=== PATIENT | female | born 1975 | race Caucasian/White ===

== ENCOUNTER 2022-11-06 22:08 | Emergency (ER) | payer OTHER ==
[2022-11-06 22:21] VITALS: RESP 16; TEMP 97.8
[2022-11-06 22:55] LABS: Basophils # (A) 0.1 k/uL (0-0.2); Basophils % (A) 1 %; Eosinophils # (A) 0.3 k/uL (0-0.7); Eosinophils % (A) 3 %; HGB 14.3 gm/dL (11.4-16.0); Lymphocytes # (A) 2.8 k/uL (1.0-4.8); Lymphocytes % (A) 33 %; MCH 31.1 pg (25.0-35.0); MCHC 33.3 g/dL (31.0-37.0); MCV 93.4 fL (80.0-100.0); Monocytes # (A) 0.5 k/uL (0-1.0); Monocytes % (A) 6 %; Neutrophils # (A) 4.7 k/uL (1.3-7.7); Neutrophils % (A) 56 %; Platelet Count 237 k/uL (150-450); RBC 4.61 m/uL (3.80-5.40); RDW 13.1 % (11.5-15.5); WBC 8.4 k/uL (3.8-10.6)
--- NOTE | 2022-11-06 23:01 | ED ---
General Adult HPI - General Source: patient, family, RN notes reviewed Mode of arrival: EMS Limitations: no limitations <Simi Vazquez - Last Filed: 11/07/22 00:35> <Dago Agosto - Last Filed: 11/07/22 03:34> - General Chief complaint: Anxiety Stated complaint: Altered Mental Time Seen by Provider: 11/06/22 22:26 - History of Present Illness Initial comments: 47-year-old female presents emergency department via EMS for anxiety. Patient has been under a lot of stress recently and lost her father today who was on hospice. Cousin and uncle are at bedside. Family states that she went to the hospice house when she suddenly went down to the floor. Family states she did not hit her head. Her cousin in the room with her states that she "would not respond" to them but would open her eyes. He states that the patient was moving her mouth but she would not talk. Family states this lasted about 10 minutes until EMS arrived. She states that she does not remember the episode. Past medical history includes anxiety. (Simi Vazquez) - Related Data Allergies Allergy/AdvReac Type Severity Reaction Status Date / Time Sulfa (Sulfonamide Allergy Unknown Verified 11/06/22 23:47 Antibiotics) Review of Systems ROS Other: All systems not noted in ROS Statement are negative. <Simi Vazquez - Last Filed: 11/07/22 00:35> ROS Other: All systems not noted in ROS Statement are negative. <Dago Agosto - Last Filed: 11/07/22 03:34> ROS Statement: Those systems with pertinent positive or pertinent negative responses have been documented in the HPI. Past Medical History History of Any Multi-Drug Resistant Organisms: None Reported Past Psychological History: No Psychological Hx Reported Smoking Status: Never smoker Past Alcohol Use History: None Reported Past Drug Use History: None Reported <Simi Vazquez - Last Filed: 11/07/22 00:35> General Exam Limitations: no limitations General appearance: alert, in no apparent distress Head exam: Present: atraumatic, normocephalic, normal inspection Eye exam: Present: normal appearance, PERRL, EOMI. Absent: scleral icterus, conjunctival injection, periorbital swelling ENT exam: Present: normal exam, mucous membranes dry Neck exam: Present: normal inspection, full ROM. Absent: tenderness, meningismus, lymphadenopathy Respiratory exam: Present: normal lung sounds bilaterally. Absent: respiratory distress, wheezes, rales, rhonchi, stridor Cardiovascular Exam: Present: regular rate, normal rhythm, normal heart sounds. Absent: systolic murmur, diastolic murmur, rubs, gallop, clicks GI/Abdominal exam: Present: soft, normal bowel sounds. Absent: distended, t enderness, guarding, rebound, rigid Extremities exam: Present: normal inspection, full ROM, normal capillary refill. Absent: tenderness, pedal edema, joint swelling, calf tenderness Neurological exam: Present: alert, oriented X3, CN II-XII intact Psychiatric exam: Present: anxious Skin exam: Present: warm, dry, intact, normal color. Absent: rash <Simi Vazquez - Last Filed: 11/07/22 00:35> Course Vital Signs 11/06/22 11/07/22 22:14 01:00 Temperature 97.8 F Pulse Rate 86 76 Respiratory 16 16 Rate Blood Pressure 116/72 111/74 O2 Sat by Pulse 100 99 Oximetry Medical Decision Making - Lab Data Result diagrams: 11/06/22 22:46 11/06/22 22:46 <Simi Vazquez - Last Filed: 11/07/22 00:35> - Lab Data Result diagrams: 11/06/22 22:46 11/06/22 22:46 <Dago Agosto - Last Filed: 11/07/22 03:34> - Medical Decision Making Was pt. sent in by a medical professional or institution (, PA, UPKEEP WORKER, urgent care, hospital, or senior care...) When possible be specific @ -[No] Did you speak to anyone other than the patient for history (EMS, parent, family, police, friend...)? What history was obtained from this source @ -[EMS and family at bedside presented what happened.] Did you review nursing and triage notes (agree or disagree)? Why? @ -[I reviewed and agree with nursing and triage notes] Were old charts reviewed (outside hosp., previous admission, EMS record, old EKG, old radiological studies, urgent care reports/EKG's, senior care records)? Report findings @ -[No old charts were reviewed] Differential Diagnosis (chest pain, altered mental status, abdominal pain women, abdominal pain men, vaginal bleeding, weakness, fever, dyspnea, syncope, headache, dizziness, GI bleed, back pain, seizure, CVA, palpatations, mental health, musculoskeletal)? @ -[Differential Syncope: Valvular disease, hypertrophic cardiomyopathy, pulmonary embolism, tamponade, tachycardia, bradycardia, NC, hypovolemia, hemorrhage, dissection, anemia, intracranial hemorrhage, seizure, hypoglycemia, carbon monoxide poisoning, this is not meant to be an all-inclusive list.] EKG interpreted by me (3pts min.). @ -[EKG at 2335 shows sinus rhythm, rate 88, ND 190, QRS 94, QTQTc [id number]] X-rays interpreted by me (1pt min.). @ -[None done] CT interpreted by me (1pt min.). @ -[CT brain without contrast pending at time of sign-out to Dr. Agosto] U/S interpreted by me (1pt. min.). @ -[None done] What testing was considered but not performed or refused? (CT, X-rays, U/S, labs)? Why? @ -[None] What meds were considered but not given or refused? Why? @ -[None] Did you discuss the management of the patient with other professionals (professionals i.e. , PA, UPKEEP WORKER, lab, RT, psych nurse, director social service, senior software development engineer, teacher, protective services officer, case assistant)? Give summary @ -[No] Was smoking cessation discussed for >3mins.? @ -[No] Was critical care preformed (if so, how long)? @ -[No] Were there social determinants of health that impacted care today? How? (Homelessness, low income, unemployed, alcoholism, drug addiction, transportation, low edu. Level, literacy, decrease access to med. care, snf, rehab)? @ -[No] Was there de-escalation of care discussed even if they declined (Discuss DNR or withdrawal of care, Hospice)? DNR status @ -[No] What co-morbidities impacted this encounter? (DM, HTN, Smoking, COPD, CAD, Cancer, CVA, ARF, Chemo, Hep., AIDS, mental health diagnosis, sleep apnea, morbid obesity)? @ -[None] Was patient admitted / discharged? Hospital course, mention meds given and route, prescriptions, significant lab abnormalities, going to OR and other pertinent info. @ -[47-year-old female presents emergency department after an episode of possible syncope. Patient was AOx3 at first evaluation. Upon exam, patient was moving slowly and would respond to questions with one word response. Patient neurologically intact at initial evaluation. CBC, CMP were obtained. CBC within normal limits, white count 8.4, hemoglobin 14.3, hematocrit 43, CMP sodium 143, potassium 4.6, creatinine 1.27. Patient was reevaluated at 0030 she was AOx3, neurologically intact. She was still unsure of what happened but more clear on the preceding events. UA ordered but pending at time of signout. CT brain pending at time of signout to Dr. Agosto.] Undiagnosed new problem with uncertain prognosis? @ -[No] Drug Therapy requiring intensive monitoring for toxicity (Heparin, Nitro, Insulin, Cardizem)? @ -[No] Were any procedures done? @ -[No] Diagnosis/symptom? @ -[default] Acute, or Chronic, or Acute on Chronic? @ -[acute] Uncomplicated (without systemic symptoms) or Complicated (systemic symptoms)? @ -[default] Side effects of treatment? @ -[No] Exacerbation, Progression, or Severe Exacerbation? @ -[No] Poses a threat to life or bodily function? How? (Chest pain, USA, NC, pneumonia, PE, COPD, DKA, ARF, appy, cholecystitis, CVA, Diverticulitis, Homicidal, Suicidal, threat to staff... and all critical care pts) @ -[No] (Simi Vazquez) CT brain is interpreted by me reveals no evidence of acute intracranial process. On reevaluation, patient is back to what appears to be her normal baseline. He is alert and oriented 4. No neurological deficits. NIH of 0. GCS of 15. The states she believes she fainted as she was hyperventilating just prior to the incident earlier because she was at bedside when her father next to her at the hospice facility. She is feeling improved at this time. We did discuss that this is likely secondary to anxiety and stress reaction. I did recommend she obtain counseling and therapist to help her with her grief. She was in agreement this plan. She is safe for discharge home at this time. I instructed the patient to follow up with their PCP in the next 1-3 days. I explained that the patient should return to the emergency department if they experience any worsening symptoms. Strict return precautions were discussed with the patient. The patient expressed understanding of these instructions. I answered all questions that the patient had. The patient was discharged home in good condition with their prescriptions and follow up information. Diagnosis/symptom? @ -Syncope versus fainting spell, stress reaction, anxiety Acute, or Chronic, or Acute on Chronic? @ -Acute Uncomplicated (without systemic symptoms) or Complicated (systemic symptoms)? @ -Uncomplicated Side effects of treatment? @ -none Exacerbation, Progression, or Severe Exacerbation] @ -no Poses a threat to life or bodily function? @ -no (Dago Agosto) - Lab Data Lab Results 11/06/22 11/06/22 11/07/22 Range/Units 22:46 22:46 01:30 WBC 8.4 (3.8-10.6) k/uL RBC 4.61 (3.80-5.40) m/uL Hgb 14.3 (11.4-16.0) gm/dL Hct 43.0 (34.0-46.0) % MCV 93.4 (80.0-100.0) fL MCH 31.1 (25.0-35.0) pg MCHC 33.3 (31.0-37.0) g/dL RDW 13.1 (11.5-15.5) % Plt Count 237 (150-450) k/uL MPV 9.0 Neutrophils % 56 % Lymphocytes % 33 % Monocytes % 6 % Eosinophils % 3 % Basophils % 1 % Neutrophils # 4.7 (1.3-7.7) k/uL Lymphocytes # 2.8 (1.0-4.8) k/uL Monocytes # 0.5 (0-1.0) k/uL Eosinophils # 0.3 (0-0.7) k/uL Basophils # 0.1 (0-0.2) k/uL Sodium 143 (137-145) mmol/L Potassium 4.6 (3.5-5.1) mmol/L Chloride 106 (98-107) mmol/L Carbon Dioxide 32 H (22-30) mmol/L Anion Gap 5 mmol/L BUN 8 (7-17) mg/dL Creatinine 1.27 H (0.52-1.04) mg/dL Est GFR (CKD-EPI)AfAm 58 (>60 ml/min/1.73 sqM) Est GFR (CKD-EPI)NonAf 51 (>60 ml/min/1.73 sqM) Glucose 108 H (74-99) mg/dL POC Glucose (mg/dL) 108 (70-110) mg/dL POC Glu Design Engineering Specialist ID Anil Sinclair Calcium 9.8 (8.4-10.2) mg/dL Total Bilirubin 0.3 (0.2-1.3) mg/dL AST 23 (14-36) U/L ALT 17 (4-34) U/L Alkaline Phosphatase 85 (38-126) U/L Total Protein 6.9 (6.3-8.2) g/dL Albumin 4.1 (3.5-5.0) g/dL Disposition <Simi Vazquez - Last Filed: 11/07/22 00:35> Is patient prescribed a controlled substance at d/c from ED?: No Time of Disposition: 03:15 <Dago Agosto - Last Filed: 11/07/22 03:34> Clinical Impression: Hyperventilation, Acute anxiety, Fainting, Stress reaction Disposition: HOME SELF-CARE Condition: Good Instructions (If sedation given, give patient instructions): Generalized Anxiety Disorder (ED), Stress (ED) Referrals: None,Stated [REFERRING] - 1-2 days
[2022-11-06 23:07] LABS: Albumin 4.1 g/dL (3.5-5.0); Calcium 9.8 mg/dL (8.4-10.2); Potassium 4.6 mmol/L (3.5-5.1); Total Bilirubin 0.3 mg/dL (0.2-1.3); Total Protein 6.9 g/dL (6.3-8.2)
[2022-11-07 01:31] LABS: Glucose,Whole Blood 108 mg/dL (70-110)
--- NOTE | 2022-11-07 02:43 | CT ---
EXAM: CT Head Without Intravenous Contrast CLINICAL HISTORY: ITS.REASON CT Reason: ams TECHNIQUE: Axial computed tomography images of the head/brain without intravenous contrast. CTDI is 49.2 mGy and DLP is 1099.4 mGy-cm. This CT exam was performed using one or more of the following dose reduction techniques: automated exposure control, adjustment of the mA and/or kV according to patient size, and/or use of iterative reconstruction technique. COMPARISON: No relevant prior studies available. FINDINGS: Brain: No hemorrhage or mass effect. Ventricles: No hydrocephalus. Bones/joints: Unremarkable. Soft tissues: Unremarkable. Sinuses: No air fluid level. Mastoid air cells: Clear. IMPRESSION: No acute hemorrhage, hydrocephalus, or mass effect.
[2022-11-07 04:10] VITALS: BP 97/62; PULSE 94
== END 2022-11-07 03:35 | disposition home or self-care (01) ==
LOC: EC 22:08
DX: R06.4 Hyperventilation (principal); F41.9 Anxiety disorder, unspecified; R55 Syncope and collapse; F43.9 Reaction to severe stress, unspecified; Z88.2 Allergy status to sulfonamides
CPT/HCPCS: 36415; 70450; 80053; 85025; 93005; 99284